=== PATIENT | male | born 1960 | race Two or more races ===

== ENCOUNTER 2021-05-05 11:10 | Inpatient (IN) | payer MEDICARE, MEDICAID ==
[~2021-05-05] VITALS: Ht 167.6 cm; Wt 95.1 kg
[2021-05-05 12:53] LABS: Basophils # (auto) 0 10 ^3/uL (0-0.2); Basophils % (auto) 0.6 % (0.0-2.0); Eosinophils # (auto) 0 10 ^3/uL (0-0.8); Eosinophils % (auto) 1.1 % (0.0-7.0); Hematocrit 18.3 % (41.0-53.0); Lymphocytes # (auto) 0.4 10 ^3/uL (0.4-5.4); Lymphocytes % (auto) 10.2 % (10.0-50.0); Mean Corpuscular Hemoglobin 30.9 pg (28.0-32.0); Mean Corpuscular Hgb Conc. 32.8 g/dL (32.0-36.0); Mean Corpuscular Volume 94.1 fL (80.0-100.0); Monocytes # (auto) 0.2 10 ^3/uL (0-1.3); Monocytes % (auto) 4.8 % (0.0-12.0); Neutrophils # (auto) 3.4 10 ^3/uL (1.6-8.6); Neutrophils % (auto) 83.3 % (37.0-80.0); Nucleated Red Blood Cells % 0.2 %; Red Blood Cells 1.94 10^6/uL (4.5-5.90); Red Cell Distribution Width 17.2 % (11.8-14.3); White Blood Cell 4.1 10^3/uL (4.4-10.8)
[2021-05-05] MEDS ORDERED: FUROSEMIDE 40 MG/4 ML VIAL IV ONE (13:00)
[2021-05-05 13:07] LABS: Albumin 1.5 g/dL (3.4-5.0); Calcium 6.8 mg/dL (8.5-10.1); INR 1.07 (0.9-1.15); Partial Thromboplastin Time 33.1 sec (23.6-33.0)
[2021-05-05 13:08] LABS: Magnesium 2.3 mg/dL (1.6-2.6)
[2021-05-05 13:12] LABS: BUN/Creatinine Ratio 15.4; Bilirubin, Total 0.2 mg/dL (0.2-1.0); Total Protein 4.8 g/dL (6.4-8.2)
[2021-05-05] MEDS ORDERED: NITROGLYCERIN 0.4 MG SL TAB SL PRN (13:45)
[2021-05-05] MEDS ORDERED: HYDROcodone-ACET 5/325MG TAB PO ONE (13:45)
[2021-05-05] MEDS ORDERED: BUMETANIDE 2.5mg/10ml (0.25 mg/ml) INJ IV ONE (13:45)
[2021-05-05] MEDS ORDERED: DOCUSATE SOD 100 MG CAP PO PRN (13:45)
[2021-05-05] MEDS ORDERED: MORPHINE SULFATE INJECTION 2 MG/ML SYRG IV PRN (13:45)
[2021-05-05] MEDS ORDERED: LACTULOSE 20Gm/30ML SOLN PO PRN (13:45)
[2021-05-05] MEDS ORDERED: ONDANSETRON HCL 4 MG/2 ML VIAL IV PRN (13:45)
[2021-05-05] MEDS ORDERED: HYDROcodone-ACET 5/325MG TAB PO PRN (13:45)
[2021-05-05] MEDS ORDERED: cefTRIAXone 1GM/50ML D5W 50 ML IV ONE (14:00)
[2021-05-05] MEDS ORDERED: AZITHROMYCIN 500MG/ 250ML 250 ML IV ONE (14:00)
[2021-05-05 14:09] LABS: Magnesium 2.1 mg/dL (1.6-2.6); Phosphorus 7.8 mg/dL (2.5-4.90)
[2021-05-05 17:14] VITALS: BP 130/68
[2021-05-05 17:35] VITALS: BP 139/67
[2021-05-05 18:59] LABS: Urine Bacteria FEW /hpf (None Seen); Urine Blood 1+ /uL (Negative); Urine Budding Yeast FEW /hpf (None Seen); Urine Specific Gravity 1.013 (1.001-1.035); Urine WBC 31 /hpf (0 - 3)
[2021-05-05 20:42] VITALS: BP 169/79
[2021-05-05] MEDS: ATORVASTATIN 20 MG TAB PO SCH (21:57)
[2021-05-05] MEDS: PANTOPRAZOLE 40 MG/10 ML VIAL INJ IV SCH (21:57)
[2021-05-05] MEDS: HYDROcodone-ACET 5/325MG TAB PO PRN (21:58)
[2021-05-05 22:00] VITALS: BP 158/76
[2021-05-05 23:15] VITALS: BP 149/80
[2021-05-06] VITALS (8 sets, daily range): BP systolic 127–173; BP diastolic 60–83
[2021-05-06] MEDS ORDERED: FURO40TA4 PO (05:07)
[2021-05-06] MEDS ORDERED: AMLO-489 PO (05:07)
[2021-05-06] MEDS ORDERED: FENO145T27 PO (05:07)
[2021-05-06] MEDS ORDERED: HYDR-4902 PO (05:07)
[2021-05-06] MEDS ORDERED: INS7030I SC (05:07)
[2021-05-06] MEDS ORDERED: CARV12.544 PO (05:07)
[2021-05-06] MEDS ORDERED: LISI40TA11 PO (05:07)
[2021-05-06] MEDS ORDERED: ASPI-543 PO (05:07)
[2021-05-06] MEDS ORDERED: SILD100T57 PO (05:07)
[2021-05-06] MEDS ORDERED: ERGO400T PO (05:07)
[2021-05-06] MEDS ORDERED: DEXT40GE PO (05:07)
[2021-05-06] MEDS ORDERED: MULT-1018 PO (05:07)
[2021-05-06 06:40] LABS: Basophils # (auto) 0 10 ^3/uL (0-0.2); Eosinophils # (auto) 0.1 10 ^3/uL (0-0.8); Mean Corpuscular Hemoglobin 31.2 pg (28.0-32.0); Monocytes % (auto) 5.5 % (0.0-12.0); Neutrophils # (auto) 3.6 10 ^3/uL (1.6-8.6); Nucleated Red Blood Cells % 0.2 %
[2021-05-06 06:43] LABS: Basophils % (auto) 1.1 % (0.0-2.0); Eosinophils % (auto) 2.1 % (0.0-7.0); Hematocrit 23.5 % (41.0-53.0); Lymphocytes # (auto) 0.5 10 ^3/uL (0.4-5.4); Mean Corpuscular Hgb Conc. 34.1 g/dL (32.0-36.0); Mean Corpuscular Volume 91.5 fL (80.0-100.0); Monocytes # (auto) 0.2 10 ^3/uL (0-1.3); Neutrophils % (auto) 79.3 % (37.0-80.0); Red Blood Cells 2.57 10^6/uL (4.5-5.90); Red Cell Distribution Width 16.4 % (11.8-14.3); White Blood Cell 4.5 10^3/uL (4.4-10.8)
[2021-05-06] MEDS: BUMETANIDE 2.5mg/10ml (0.25 mg/ml) INJ IV SCH ×2 (06:48→06:49)
[2021-05-06 06:50] LABS: INR 1.1 (0.9-1.15); Partial Thromboplastin Time 33.2 sec (23.6-33.0)
[2021-05-06 06:57] LABS: Potassium 4.9 mmol/L (3.5-5.1)
[2021-05-06 07:21] LABS: Albumin 1.6 g/dL (3.4-5.0); BUN/Creatinine Ratio 15.1; Bilirubin, Total 0.2 mg/dL (0.2-1.0); Calcium 7.2 mg/dL (8.5-10.1); Magnesium 2.4 mg/dL (1.6-2.6); Phosphorus 8.1 mg/dL (2.5-4.90); Total Protein 5.8 g/dL (6.4-8.2); Uric Acid 6.4 mg/dL (3.5-7.2)
[2021-05-06 08:55] LABS: Amphetamine Screen, Urine NEGATIVE (NEGATIVE); Barbiturate Scree,Urine NEGATIVE (NEGATIVE); Benzodiazephine Screen, Urine NEGATIVE (NEGATIVE); Cannabinoid Screen, Urine POSITIVE (NEGATIVE); Cocaine Screen, Urine NEGATIVE (NEGATIVE); Opiate Scree,Urine NEGATIVE (NEGATIVE); Phencyclidine Screen, Urine NEGATIVE (NEGATIVE)
[2021-05-06] MEDS ORDERED: cefTRIAXone 1GM/50ML D5W 50 ML IV SCH (09:00)
[2021-05-06] MEDS: PANTOPRAZOLE 40 MG/10 ML VIAL INJ IV SCH ×2 (09:06→21:08)
[2021-05-06] MEDS: AZITHROMYCIN 500MG/ 250ML 250 ML IV SCH (10:17)
[2021-05-06] MEDS: HYDROcodone-ACET 5/325MG TAB PO PRN (13:58)
[2021-05-06] MEDS ORDERED: POLYETHYLENE GLYCOL 17 GM PWDR PO ONE (15:15)
[2021-05-06] MEDS ORDERED: NIFEdipine ER 30 MG TAB PO ONE (19:00)
[2021-05-06] MEDS: ATORVASTATIN 20 MG TAB PO SCH (21:09)
[2021-05-07 05:00] VITALS: BP 161/73
[2021-05-07] MEDS: BUMETANIDE 2.5mg/10ml (0.25 mg/ml) INJ IV SCH ×2 (05:35→17:31)
[2021-05-07 09:00] VITALS: BP 141/66
[2021-05-07] MEDS: PANTOPRAZOLE 40 MG/10 ML VIAL INJ IV SCH (09:53)
[2021-05-07] MEDS: AZITHROMYCIN 500MG/ 250ML 250 ML IV SCH (09:53)
[2021-05-07] MEDS: POLYETHYLENE GLYCOL 17 GM PWDR PO SCH (09:53)
[2021-05-07] MEDS: NIFEdipine ER 30 MG TAB PO SCH (09:54)
[2021-05-07] MEDS: HYDROcodone-ACET 5/325MG TAB PO PRN ×3 (09:54→19:18)
[2021-05-07 13:00] VITALS: BP 128/64
[2021-05-07 17:00] VITALS: BP 121/62
[2021-05-08] MEDS: PANTOPRAZOLE 40 MG/10 ML VIAL INJ IV SCH ×3 (00:42→22:00)
[2021-05-08] MEDS: ATORVASTATIN 20 MG TAB PO SCH ×2 (00:43→22:00)
[2021-05-08 05:38] LABS: Basophils # (auto) 0 10 ^3/uL (0-0.2); Basophils % (auto) 0.6 % (0.0-2.0); Eosinophils # (auto) 0.1 10 ^3/uL (0-0.8); Eosinophils % (auto) 1.9 % (0.0-7.0); Mean Corpuscular Volume 92.6 fL (80.0-100.0); Monocytes # (auto) 0.3 10 ^3/uL (0-1.3); Neutrophils % (auto) 82.6 % (37.0-80.0); Nucleated Red Blood Cells % 0.1 %; Red Blood Cells 2.63 10^6/uL (4.5-5.90)
[2021-05-08 05:42] LABS: Hematocrit 24.3 % (41.0-53.0); Hemoglobin 8.2 g/dL (13.5-17.5); Lymphocytes # (auto) 0.5 10 ^3/uL (0.4-5.4); Lymphocytes % (auto) 9.6 % (10.0-50.0); Mean Corpuscular Hemoglobin 31.2 pg (28.0-32.0); Mean Corpuscular Hgb Conc. 33.7 g/dL (32.0-36.0); Monocytes % (auto) 5.3 % (0.0-12.0); Neutrophils # (auto) 4.7 10 ^3/uL (1.6-8.6); Red Cell Distribution Width 16.4 % (11.8-14.3); White Blood Cell 5.7 10^3/uL (4.4-10.8)
[2021-05-08 05:55] VITALS: BP 124/77
[2021-05-08 06:03] LABS: Potassium 5.2 mmol/L (3.5-5.1)
[2021-05-08 06:08] LABS: BUN/Creatinine Ratio 14.3; Calcium 7.3 mg/dL (8.5-10.1)
[2021-05-08] MEDS: BUMETANIDE 2.5mg/10ml (0.25 mg/ml) INJ IV SCH (06:44)
[2021-05-08 10:00] VITALS: BP 128/52
[2021-05-08] MEDS: POLYETHYLENE GLYCOL 17 GM PWDR PO SCH (10:00)
[2021-05-08] MEDS: NIFEdipine ER 30 MG TAB PO SCH (10:00)
[2021-05-08] MEDS: AZITHROMYCIN 500MG/ 250ML 250 ML IV SCH (10:36)
[2021-05-08] MEDS: HYDROcodone-ACET 5/325MG TAB PO PRN ×2 (10:37→16:48)
[2021-05-08 15:02] VITALS: BP 127/61
[2021-05-08] MEDS: SODIUM BICARBONATE 650 MG TAB PO SCH ×2 (16:49→22:00)
[2021-05-08 17:00] VITALS: BP 141/57
[2021-05-08 20:00] VITALS: BP 158/72
[2021-05-09 04:46] VITALS: BP 166/73
[2021-05-09] MEDS: SODIUM BICARBONATE 650 MG TAB PO SCH ×4 (06:00→21:19)
[2021-05-09] MEDS: BUMETANIDE 2.5mg/10ml (0.25 mg/ml) INJ IV SCH ×2 (06:00→19:48)
[2021-05-09 06:08] LABS: Basophils # (auto) 0 10 ^3/uL (0-0.2); Basophils % (auto) 0.5 % (0.0-2.0); Eosinophils # (auto) 0.1 10 ^3/uL (0-0.8); Hemoglobin 8.2 g/dL (13.5-17.5); Monocytes # (auto) 0.3 10 ^3/uL (0-1.3); Nucleated Red Blood Cells % 0.1 %
[2021-05-09 06:14] LABS: Eosinophils % (auto) 1.4 % (0.0-7.0); Lymphocytes # (auto) 0.4 10 ^3/uL (0.4-5.4); Mean Corpuscular Volume 91.1 fL (80.0-100.0); Monocytes % (auto) 4.5 % (0.0-12.0); Neutrophils # (auto) 6.3 10 ^3/uL (1.6-8.6); Neutrophils % (auto) 87.6 % (37.0-80.0); Red Blood Cells 2.64 10^6/uL (4.5-5.90); Red Cell Distribution Width 16.2 % (11.8-14.3); White Blood Cell 7.2 10^3/uL (4.4-10.8)
[2021-05-09 06:31] LABS: Potassium 5.1 mmol/L (3.5-5.1)
[2021-05-09 06:35] LABS: BUN/Creatinine Ratio 14.4; Calcium 6.9 mg/dL (8.5-10.1)
[2021-05-09 06:36] LABS: INR 1.1 (0.9-1.15); Partial Thromboplastin Time 38.7 sec (23.6-33.0)
[2021-05-09] MEDS: hydrALAZINE HCL 20 MG/ML VL IV PRN (07:00)
[2021-05-09 08:24] VITALS: BP 150/67
[2021-05-09] MEDS ORDERED: LIDOCAINE 2%HCL (LOCAL ANESTH.) INJ 20ML MDV ONE (09:04)
[2021-05-09] MEDS ORDERED: fentaNYL CITRATE 100 MCG/2 ML VL ONE (09:06)
[2021-05-09] MEDS ORDERED: HEPARIN SODIUM (PORCINE) 5000 UNITS/ML 1ML VIAL ONE (09:06)
[2021-05-09] MEDS ORDERED: MIDAZOLAM HCL 2MG/2ML 2ml VIAL (1mg/ml) ONE (09:06)
[2021-05-09] MEDS: NIFEdipine ER 30 MG TAB PO SCH (10:00)
[2021-05-09] MEDS: POLYETHYLENE GLYCOL 17 GM PWDR PO SCH (10:00)
[2021-05-09 11:40] VITALS: BP 135/61
[2021-05-09] MEDS: PANTOPRAZOLE 40 MG/10 ML VIAL INJ IV SCH ×2 (15:51→21:19)
[2021-05-09 17:00] VITALS: BP 153/75
[2021-05-09] MEDS: ATORVASTATIN 20 MG TAB PO SCH (21:19)
[2021-05-09 22:00] VITALS: BP 150/81
[2021-05-10 05:00] VITALS: BP 187/87
[2021-05-10] MEDS: BUMETANIDE 2.5mg/10ml (0.25 mg/ml) INJ IV SCH ×2 (05:22→18:36)
[2021-05-10] MEDS: SODIUM BICARBONATE 650 MG TAB PO SCH ×4 (05:23→21:49)
[2021-05-10 06:26] LABS: Basophils # (auto) 0 10 ^3/uL (0-0.2); Basophils % (auto) 0.3 % (0.0-2.0); Eosinophils # (auto) 0 10 ^3/uL (0-0.8); Eosinophils % (auto) 0.2 % (0.0-7.0); Hematocrit 26.3 % (41.0-53.0); Hemoglobin 8.9 g/dL (13.5-17.5); Lymphocytes # (auto) 0.5 10 ^3/uL (0.4-5.4); Lymphocytes % (auto) 5.8 % (10.0-50.0); Mean Corpuscular Hemoglobin 30.8 pg (28.0-32.0); Mean Corpuscular Hgb Conc. 33.8 g/dL (32.0-36.0); Monocytes # (auto) 0.3 10 ^3/uL (0-1.3); Monocytes % (auto) 3.7 % (0.0-12.0); Neutrophils # (auto) 7.3 10 ^3/uL (1.6-8.6); Nucleated Red Blood Cells % 0.1 %; Red Blood Cells 2.89 10^6/uL (4.5-5.90); White Blood Cell 8.1 10^3/uL (4.4-10.8)
[2021-05-10 06:37] LABS: BUN/Creatinine Ratio 14.1; Calcium 7.9 mg/dL (8.5-10.1); Potassium 5.3 mmol/L (3.5-5.1)
[2021-05-10 09:00] VITALS: BP 199/87
[2021-05-10] MEDS: POLYETHYLENE GLYCOL 17 GM PWDR PO SCH (09:29)
[2021-05-10] MEDS: PANTOPRAZOLE 40 MG/10 ML VIAL INJ IV SCH ×2 (09:29→21:49)
[2021-05-10] MEDS: NIFEdipine ER 30 MG TAB PO SCH (09:30)
[2021-05-10] MEDS: HYDROcodone-ACET 5/325MG TAB PO PRN ×2 (09:51→16:27)
[2021-05-10 13:00] VITALS: BP 196/82
[2021-05-10] MEDS: SODIUM FERR GLUC 62.5MG/5ML 125 MG in SODIUM CHL 0.9% 100 ML IV SCH (15:20)
[2021-05-10] MEDS: amLODIPine BESYLATE 5 MG TAB PO SCH (16:26)
[2021-05-10] MEDS ORDERED: LISINOPRIL 20 MG TAB PO ONE (16:30)
[2021-05-10 17:00] VITALS: BP 153/54
[2021-05-10] MEDS ORDERED: EPOETIN ALFA-EPBX 4,000 UNIT/ML VIAL SC ONE (21:00)
[2021-05-10] MEDS: ATORVASTATIN 20 MG TAB PO SCH (21:49)
[2021-05-10 22:00] VITALS: BP 131/69
[2021-05-11 05:00] VITALS: BP 106/62
[2021-05-11] MEDS: SODIUM BICARBONATE 650 MG TAB PO SCH ×4 (06:36→21:38)
[2021-05-11] MEDS: BUMETANIDE 2.5mg/10ml (0.25 mg/ml) INJ IV SCH ×2 (06:37→17:27)
[2021-05-11 08:36] VITALS: BP 154/66
[2021-05-11 10:08] LABS: Hepatitis B Surface Antibody Negative (Negative)
[2021-05-11 10:40] LABS: Hepatitis A Total Antibody Negative (Negative)
[2021-05-11 10:40] LABS: Potassium 4.5 mmol/L (3.5-5.1)
[2021-05-11] MEDS: POLYETHYLENE GLYCOL 17 GM PWDR PO SCH (12:02)
[2021-05-11] MEDS: SODIUM FERR GLUC 62.5MG/5ML 125 MG in SODIUM CHL 0.9% 100 ML IV SCH (12:02)
[2021-05-11] MEDS: PANTOPRAZOLE 40 MG/10 ML VIAL INJ IV SCH ×2 (12:02→21:38)
[2021-05-11] MEDS ORDERED: CALCIUM ACETATE 667 MG CAP PO ONE (12:45)
[2021-05-11 13:00] VITALS: BP 155/73
[2021-05-11 14:01] LABS: Basophils # (auto) 0 10 ^3/uL (0-0.2); Eosinophils # (auto) 0.1 10 ^3/uL (0-0.8); Monocytes # (auto) 0.1 10 ^3/uL (0-1.3); Nucleated Red Blood Cells % 0.2 %; White Blood Cell 4.6 10^3/uL (4.4-10.8)
[2021-05-11 14:03] LABS: Basophils % (auto) 0.9 % (0.0-2.0); Eosinophils % (auto) 1.9 % (0.0-7.0); Hematocrit 22.3 % (41.0-53.0); Hemoglobin 7.5 g/dL (13.5-17.5); Lymphocytes # (auto) 0.5 10 ^3/uL (0.4-5.4); Lymphocytes % (auto) 11.1 % (10.0-50.0); Mean Corpuscular Hemoglobin 30.5 pg (28.0-32.0); Mean Corpuscular Hgb Conc. 33.8 g/dL (32.0-36.0); Mean Corpuscular Volume 90.3 fL (80.0-100.0); Neutrophils # (auto) 3.9 10 ^3/uL (1.6-8.6); Neutrophils % (auto) 83.1 % (37.0-80.0); Red Blood Cells 2.47 10^6/uL (4.5-5.90); Red Cell Distribution Width 16.5 % (11.8-14.3)
[2021-05-11 14:33] LABS: Hepatitis A Ab IgM Negative
[2021-05-11 14:53] LABS: Hepatitis B Core IgM Negative
[2021-05-11 15:11] LABS: Hepatitis C Antibody Negative (Negative)
[2021-05-11 15:11] LABS: Hepatitis C Antibody Negative (Negative)
[2021-05-11] MEDS ORDERED: POLYETHYLENE GLYCOL 17 GM PWDR PO ONE (15:45)
[2021-05-11] MEDS ORDERED: ERGOCALCIFEROL 50,000 UNIT(1.25MG) CAP PO SCH (15:45)
[2021-05-11] MEDS ORDERED: POLYETHYLENE GLYCOL 17 GM PWDR PO PRN (15:45)
[2021-05-11 17:00] VITALS: BP 165/83
[2021-05-11 17:09] LABS: % Iron Saturation 115.8 % (20-55)
[2021-05-11] MEDS: LISINOPRIL 20 MG TAB PO SCH (17:25)
[2021-05-11] MEDS: amLODIPine BESYLATE 5 MG TAB PO SCH (17:25)
[2021-05-11] MEDS: CALCIUM ACETATE 667 MG CAP PO SCH (17:27)
[2021-05-11] MEDS ORDERED: EPOETIN ALFA-EPBX 4,000 UNIT/ML VIAL SC ONE (21:00)
[2021-05-11] MEDS: ATORVASTATIN 20 MG TAB PO SCH (21:38)
[2021-05-11 22:00] VITALS: BP 165/63
[2021-05-12] MEDS: hydrALAZINE HCL 20 MG/ML VL IV PRN (04:23)
[2021-05-12 05:00] VITALS: BP 192/82
[2021-05-12 06:19] LABS: Basophils # (auto) 0 10 ^3/uL (0-0.2); Eosinophils # (auto) 0.1 10 ^3/uL (0-0.8); Lymphocytes # (auto) 0.7 10 ^3/uL (0.4-5.4); Monocytes # (auto) 0.4 10 ^3/uL (0-1.3); Neutrophils # (auto) 3.6 10 ^3/uL (1.6-8.6); Nucleated Red Blood Cells % 0.1 %
[2021-05-12 06:21] LABS: Basophils % (auto) 0.6 % (0.0-2.0); Eosinophils % (auto) 1.4 % (0.0-7.0); Hematocrit 21.4 % (41.0-53.0); Hemoglobin 7.4 g/dL (13.5-17.5); Lymphocytes % (auto) 14.4 % (10.0-50.0); Mean Corpuscular Hemoglobin 30.8 pg (28.0-32.0); Mean Corpuscular Hgb Conc. 34.6 g/dL (32.0-36.0); Mean Corpuscular Volume 89.2 fL (80.0-100.0); Monocytes % (auto) 9.2 % (0.0-12.0); Neutrophils % (auto) 74.4 % (37.0-80.0); Red Cell Distribution Width 15.9 % (11.8-14.3); White Blood Cell 4.8 10^3/uL (4.4-10.8)
[2021-05-12] MEDS: BUMETANIDE 2.5mg/10ml (0.25 mg/ml) INJ IV SCH (06:27)
[2021-05-12] MEDS: SODIUM BICARBONATE 650 MG TAB PO SCH ×2 (06:27→15:03)
[2021-05-12 06:40] LABS: Calcium 6.9 mg/dL (8.5-10.1); Potassium 3.2 mmol/L (3.5-5.1)
[2021-05-12 06:44] LABS: BUN/Creatinine Ratio 11.7
[2021-05-12] MEDS: PANTOPRAZOLE 40 MG/10 ML VIAL INJ IV SCH (08:24)
[2021-05-12] MEDS: CALCIUM ACETATE 667 MG CAP PO SCH ×2 (08:24→12:23)
[2021-05-12] MEDS: amLODIPine BESYLATE 5 MG TAB PO SCH (08:25)
[2021-05-12] MEDS: LISINOPRIL 20 MG TAB PO SCH (08:26)
[2021-05-12 09:00] VITALS: BP 198/77
[2021-05-12] MEDS ORDERED: CALC667C5 PO (10:50)
[2021-05-12] MEDS ORDERED: SODI650T PO (10:50)
[2021-05-12] MEDS ORDERED: FURO40TA4 PO (10:50)
[2021-05-12] MEDS ORDERED: ERGO1CAP23 PO (10:50)
[2021-05-12 13:00] VITALS: BP 193/43
[2021-05-12 17:00] VITALS: BP 187/78
[2021-05-12 17:59] VITALS: BP 198/77
[2021-05-13] MEDS ORDERED: SODIUM CHL 0.9% 1000 ML BAG XX ONE (07:00)
[2021-05-13] MEDS ORDERED: EPOETIN ALFA-EPBX 10,000 UNIT/1ML VIAL SC ONE (21:00)
== END 2021-05-12 18:30 | disposition home or self-care (01) | DRG 291 ==
LOC: ER 11:10 → TELE 13:41 → TELE-WESTW 20:14 → WEST WING 05-08 13:56
PROVIDERS: ADMIT Hospitalist; ATTEND Internal Medicine
PROC: 30233N1 Transfusion of Nonautologous Red Blood Cells into Peripheral Vein, Percutaneous Approach (ICD-10-PCS; principal; 2021-05-05)
PROC: 0JH63XZ Insertion of Tunneled Vascular Access Device into Chest Subcutaneous Tissue and Fascia, Percutaneous Approach (ICD-10-PCS; 2021-05-09)
PROC: 02H633Z Insertion of Infusion Device into Right Atrium, Percutaneous Approach (ICD-10-PCS; 2021-05-09)
PROC: B5181ZA Fluoroscopy of Superior Vena Cava using Low Osmolar Contrast, Guidance (ICD-10-PCS; 2021-05-09)
PROC: B548ZZA Ultrasonography of Superior Vena Cava, Guidance (ICD-10-PCS; 2021-05-09)
PROC: 5A1D70Z Performance of Urinary Filtration, Intermittent, Less than 6 Hours Per Day (ICD-10-PCS; 2021-05-09)
DX: I13.2 Hypertensive heart and chronic kidney disease with heart failure and with stage 5 chronic kidney disease, or end stage renal disease (principal); I50.43 Acute on chronic combined systolic (congestive) and diastolic (congestive) heart failure; N18.6 End stage renal disease; N17.1 Acute kidney failure with acute cortical necrosis; J18.9 Pneumonia, unspecified organism; E44.0 Moderate protein-calorie malnutrition; I16.9 Hypertensive crisis, unspecified; J98.11 Atelectasis; I27.20 Pulmonary hypertension, unspecified; D63.1 Anemia in chronic kidney disease; K75.81 Nonalcoholic steatohepatitis (NASH); E11.40 Type 2 diabetes mellitus with diabetic neuropathy, unspecified; E11.22 Type 2 diabetes mellitus with diabetic chronic kidney disease; E11.51 Type 2 diabetes mellitus with diabetic peripheral angiopathy without gangrene; E66.01 Morbid (severe) obesity due to excess calories; Z20.822 Contact with and (suspected) exposure to COVID-19; E87.5 Hyperkalemia; E78.5 Hyperlipidemia, unspecified; Z99.2 Dependence on renal dialysis; Z79.4 Long term (current) use of insulin; Z79.899 Other long term (current) drug therapy; Z82.3 Family history of stroke; Z82.49 Family history of ischemic heart disease and other diseases of the circulatory system; Z83.3 Family history of diabetes mellitus; Z87.442 Personal history of urinary calculi; Z89.432 Acquired absence of left foot; Z68.36 Body mass index [BMI] 36.0-36.9, adult
CPT/HCPCS: 36415; 36430; 71045; 73030; 76942; 78582; 80048; 80053; 80061; 80074; 80307; 81001; 82306; 82728; 82962; 83036; 83540; 83550; 83615; 83735; 83880; 83970; 84100; 84443; 84484; 84550; 85025; 85045; 85379; 85610; 85730; 86704; 86706; 86708; 86803; 86850; 86900; 86901; 86920; 87040; 87086; 87340; 87426; 90935; 93005; 93306; 93970; 96365; 96375; 99152; C9113; G0378; J0696; J1642; J2250